=== PATIENT | male | born 1970 | race Caucasian/White ===

== ENCOUNTER → 2017-04-30 | Outpatient (CLI) | payer BC ==
[~2017-04-30] MED LIST: IBUP-103 PO
[2017-04-30 11:18] LABS: ALT/SGPT 33 U/L (12-78); AST/SGOT 13 U/L (15-37); BLOOD UREA NITROGEN 16 mg/dl (7-18); BUN/CREATININE RATIO 14.4 (10-20); CALCIUM 8.5 mg/dl (8.5-10.1); CARBON DIOXIDE 31 mmol/L (21-32); CHLORIDE 107 mmol/L (98-107); CREATININE 1.11 mg/dl (0.60-1.40); GLUCOSE 96 mg/dl (70-99); POTASSIUM 4.3 mmol/L (3.5-5.1); SODIUM 142 mmol/L (136-145)
[2017-04-30 11:29] LABS: ALB/GLOB RATIO 1.1 (0.9-2); ALKALINE PHOSPHATASE 78 U/L (45-117); FERRITIN 129.3 ng/ml (8.0-388.0)
[2017-04-30 12:03] LABS: LYME DISEASE AB IGG POS (NEG); LYME DISEASE AB IGM EQUIVOCAL (NEG)
[2017-05-05 13:36] LABS: GLIADIN DEAMIDATED IgA AB 6 UNITS (<20); GLIADIN DEAMIDATED IgG AB 4 UNITS (<20); RETICULIN IgA AB Negative (Negative); VITAMIN B6** TC 926 13.9 ng/mL (2.1-21.7)
[2017-05-05 14:25] LABS: 18KDIGG BAND REACTIVE (NONREACTIVE); 23KDIGG BAND REACTIVE (NONREACTIVE); 23KDIGM BAND REACTIVE (NONREACTIVE); 28KDIGG BAND NONREACTIVE (NONREACTIVE); 30KDIGG BAND REACTIVE (NONREACTIVE); 39KDIGG BAND REACTIVE (NONREACTIVE); 39KDIGM BAND NONREACTIVE (NONREACTIVE); 41KDIGG BAND REACTIVE (NONREACTIVE); 41KDIGM BAND REACTIVE (NONREACTIVE); 45KDIGG BAND REACTIVE (NONREACTIVE); 58KDIGG BAND REACTIVE (NONREACTIVE); 66KDIGG BAND REACTIVE (NONREACTIVE); 93KDIGG BAND REACTIVE (NONREACTIVE)
== END | disposition home or self-care (01) ==
LOC: C.LABBC 08:13
PROVIDERS: ATTEND Internal Medicine
DX: M25.50 Pain in unspecified joint (principal); R43.2 Parageusia; R20.8 Other disturbances of skin sensation

== ENCOUNTER → 2017-10-14 | Outpatient (CLI) | payer BC ==
--- NOTE | 2017-10-14 12:28 | DIAGNOSTIC IMAGING REPORT ---
L FOOT MIN 3 VIEWS ROUTINE HISTORY: 47 years-old Male LEFT FOOT PAIN acute left foot pain without reported trauma COMPARISON: None available TECHNIQUE: 3 views of the left foot FINDINGS: Bipartite medial hallux sesamoid. No acute fracture, dislocation, or significant degenerative changes. There is minimal marginal spurring about the talonavicular joint. No opaque foreign body. Minimal marginal spurring of the medial malleolus. Note is made of an os peroneum. IMPRESSION: No acute fracture. The above report was generated using voice recognition software. It may contain grammatical, syntax or spelling errors. Electronically signed by: Jeffry Matthews M.D. 10/14/2017 12:27 PM Dictated Date/Time: 10/14/2017 12:25 PM
== END | disposition home or self-care (01) ==
LOC: C.RADBC 12:04
PROVIDERS: ATTEND Nurse Practitioner Adult Health
DX: M79.672 Pain in left foot (principal)